=== PATIENT | female | born 1940 | race Hispanic/Latino ===

== ENCOUNTER 2017-09-01 10:53 | Outpatient (RCR) | payer MEDICARE, OTHER ==
[~2017-09-01 10:53] MED LIST: LEVOTHYROXINE50 MCG PO; LINZESS PO; LORATADINE10 MG PO; NORVASC5 MG PO; SYMBICORT 16010.2 GM INH
== END 2017-09-07 ==
LOC: PT 10:53
PROVIDERS: ATTEND Specialist
DX: M47.812 Spondylosis without myelopathy or radiculopathy, cervical region (principal); M79.601 Pain in right arm; M62.81 Muscle weakness (generalized)
CPT/HCPCS: 97010; 97110; 97140; 97163; G8984; G8985

== ENCOUNTER 2021-03-12 19:56 | Emergency (ER) | payer MEDICARE ==
[~2021-03-12] VITALS: Ht 147.3 cm; Wt 56.7 kg
[~2021-03-12 19:56] MED LIST changes: +ALENDRONATE SOD70 MG PO; +ASPIR-LOW81 MG; +GLUCOSAMINE1000 MG PO; +OMEGA 3 FISH O1 EACH PO; +OMEPRAZOLE40 MG PO; +POTASSIUM CHLO10 ME1 PO; +[UNRECOGNIZED DRUG - OTHER] PO
[2021-03-12 20:47] LABS: BASOPHILS % 0.6 % (0.0-1.0); EOSINOPHILS % 0.2 % (0.0-6.0); HEMATOCRIT 48.4 % (34.2-44.1); HEMOGLOBIN 15.9 g/dL (12.0-16.0); LYMPHOCYTES # (AUTO) 0.9 (1.0-3.2); LYMPHOCYTES % 15.6 % (18.0-39.1); MEAN CORPUSCULAR HEMOGLOBIN 31.7 pg (28-32); MEAN CORPUSCULAR HGB CONC 32.9 g/dL (31-35); MEAN CORPUSCULAR VOLUME 96.4 fL (81-99); MONOCYTES # (AUTO) 0.5 (0.2-0.8); MONOCYTES % 9.5 % (4.4-11.3); NEUTROPHILS % 73.9 % (38.7-80.0); PLATELET COUNT 114 x10e3/uL (140-360); RED BLOOD COUNT 5.02 x10e6/uL (3.6-5.1); RED CELL DISTRIBUTION WIDTH 14.6 % (11.7-14.4)
[2021-03-12] MEDS ORDERED: ACETAMINOPHEN 325 MG TAB PO ONE (21:00)
[2021-03-12 21:05] LABS: ALBUMIN 3.5 g/dL (3.5-5.0); ALBUMIN/GLOBULIN RATIO 0.9 (0.8-2.0); ANION GAP 13.1 mmol/L (8-16); CALCIUM 8.9 mg/dL (8.4-10.2); CREATININE, SERUM 0.75 mg/dL (0.57-1.11); POTASSIUM 3.1 mmol/L (3.5-5.1)
[2021-03-12 21:11] LABS: LIPASE 8 U/L (8-78)
[2021-03-12] MEDS ORDERED: CASIRIVIMAB/IMDEVIMAB 10 ML VIAL IV ONE (21:30)
[2021-03-12] MEDS ORDERED: IOPAMIDOL 370 MG/ML 200 ML INFUS..BTL INJ ONE (21:48)
[2021-03-12] MEDS ORDERED: SODIUM CHLORIDE 0.9% 50ML 50 ML ONE (21:48)
[2021-03-12] MEDS ORDERED: CASIRIVIMAB/IMDEVIMAB 600 ML in SODIUM CHLORIDE 0.9% 100 ML IV ONE (22:00)
[2021-03-12 23:32] VITALS: BP 132/79
== END 2021-03-12 23:30 | disposition home or self-care (01) ==
LOC: ER 20:49
DX: U07.1 COVID-19 (principal); R06.02 Shortness of breath; R05 Cough; R07.9 Chest pain, unspecified; R10.30 Lower abdominal pain, unspecified; I10 Essential (primary) hypertension; J45.909 Unspecified asthma, uncomplicated; M19.90 Unspecified osteoarthritis, unspecified site; Z79.82 Long term (current) use of aspirin; Z79.899 Other long term (current) drug therapy
CPT/HCPCS: 36415; 71045; 74177; 80053; 83690; 83880; 84484; 85025; 93005; 99282; Q9967; U0002

== ENCOUNTER → 2021-05-14 | Outpatient (CLI) | payer MEDICARE | LOC: US 10:26 | PROVIDERS: ATTEND Internal Medicine Gastroenterology | DX: R13.19 Other dysphagia (principal); K74.60 Unspecified cirrhosis of liver | CPT/HCPCS: 76705 ==

== ENCOUNTER 2021-05-20 13:26 | Emergency (ER) | payer MEDICARE ==
[~2021-05-20] VITALS: Ht 144.8 cm; Wt 57.6 kg
[2021-05-20 14:17] LABS: BASOPHILS % 0.7 % (0.0-1.0); EOSINOPHILS # (AUTO) 0.1 (0.0-0.4); EOSINOPHILS % 1.6 % (0.0-6.0); HEMATOCRIT 46.6 % (34.2-44.1); HEMOGLOBIN 15.4 g/dL (12.0-16.0); LYMPHOCYTES # (AUTO) 1.7 (1.0-3.2); LYMPHOCYTES % 30.2 % (18.0-39.1); MEAN CORPUSCULAR HEMOGLOBIN 31.6 pg (28-32); MEAN CORPUSCULAR VOLUME 95.7 fL (81-99); MONOCYTES # (AUTO) 0.5 (0.2-0.8); MONOCYTES % 8.5 % (4.4-11.3); NEUTROPHILS # (AUTO) 3.3 (2.1-6.9); NEUTROPHILS % 58.6 % (38.7-80.0); PLATELET COUNT 135 x10e3/uL (140-360); RED BLOOD COUNT 4.87 x10e6/uL (3.6-5.1); RED CELL DISTRIBUTION WIDTH 14.4 % (11.7-14.4)
[2021-05-20 14:27] LABS: ANION GAP 12.2 mmol/L (8-16); CALCIUM 8.1 mg/dL (8.4-10.2); CREATININE, SERUM 0.7 mg/dL (0.57-1.11); POTASSIUM 3.2 mmol/L (3.5-5.1)
[2021-05-20 14:30] LABS: ALBUMIN 3.3 g/dL (3.5-5.0); BILIRUBIN,DIRECT 0.4 mg/dL (0.0-0.5)
[2021-05-20 14:31] LABS: CLARITY,URINE SL CLOUDY (CLEAR); COLOR,URINE AMBER (YELLOW); KETONES,URINE TRACE (NEGATIVE); LEUKOCYTE ESTERASE ,URINE TRACE (NEGATIVE); NITRITE,URINE NEGATIVE (NEGATIVE); PROTEIN,URINE DIPSTICK NEGATIVE (NEGATIVE); URINE UROBILINOGEN 0.2 mg/dL (0.2 - 1)
[2021-05-20 14:44] LABS: BACTERIA,URINE MANY /HPF; EPITHELIAL CELLS,URINE MODERATE /LPF; WBC,URINE (MAN) 0-5 /HPF (0-5)
[2021-05-20] MEDS ORDERED: SODIUM CHLORIDE 0.9% 50ML 50 ML ONE (16:38)
[2021-05-20] MEDS ORDERED: IOPAMIDOL 370 MG/ML 200 ML INFUS..BTL INJ ONE (16:39)
[2021-05-20] MEDS ORDERED: CIPRO500 MG PO (17:30)
[2021-05-20] MEDS ORDERED: ULTRAM50 MG PO (17:30)
== END 2021-05-20 17:35 | disposition home or self-care (01) ==
LOC: ER 13:57
DX: R10.32 Left lower quadrant pain (principal); N39.0 Urinary tract infection, site not specified; I10 Essential (primary) hypertension; J45.909 Unspecified asthma, uncomplicated; Z85.3 Personal history of malignant neoplasm of breast
CPT/HCPCS: 36415; 74177; 80048; 80076; 81001; 85025; 99284; Q9967

== ENCOUNTER → 2022-12-17 | Outpatient (CLI) | payer MEDICARE, OTHER ==
[~2022-12-17] MED LIST changes: +CIPRO500 MG PO; +ULTRAM50 MG PO
== END ==
LOC: US 10:30
PROVIDERS: ATTEND Nurse Practitioner
DX: K59.09 Other constipation (principal); K74.69 Other cirrhosis of liver
CPT/HCPCS: 76705

== ENCOUNTER → 2023-12-07 | Outpatient (REF) | payer MEDICARE | LOC: RAD 09:53 | PROVIDERS: ATTEND Nurse Practitioner | DX: K59.09 Other constipation (principal); I10 Essential (primary) hypertension; K74.60 Unspecified cirrhosis of liver | CPT/HCPCS: 74018 ==